=== PATIENT | female | born 1965 | race Caucasian/White ===

== ENCOUNTER 2018-08-15 14:28 | Emergency (ER) | payer OTHER ==
[~2018-08-15] VITALS: Ht 167.6 cm; Wt 118.2 kg
[2018-08-15 16:08] VITALS: BP 109/74
== END 2018-08-15 17:28 | disposition home or self-care (01) ==
LOC: EMS 14:29
DX: I87.2 Venous insufficiency (chronic) (peripheral) (principal); I87.8 Other specified disorders of veins; N39.0 Urinary tract infection, site not specified; R19.7 Diarrhea, unspecified; R45.851 Suicidal ideations; F32.9 Major depressive disorder, single episode, unspecified; Z88.0 Allergy status to penicillin; Z88.1 Allergy status to other antibiotic agents; Z88.8 Allergy status to other drugs, medicaments and biological substances; Z88.2 Allergy status to sulfonamides; Z87.891 Personal history of nicotine dependence
CPT/HCPCS: 99283

== ENCOUNTER 2019-10-04 10:47 | Inpatient (IN) | payer OTHER ==
[~2019-10-04] VITALS: Ht 172.7 cm; Wt 120.2 kg
[2019-10-04] MEDS ORDERED: HYDR-4455 PO (11:08)
[2019-10-04 12:27] LABS: BASOPHILS % (AUTO) 0.3 % (0.0-2.0); EOSINOPHILS % (AUTO) 1.3 % (1.0-6.0); HEMATOCRIT 32.8 % (36-46); HEMOGLOBIN 10.6 g/dL (12.0-16.0); LYMPHOCYTES # (AUTO) 1.2 K/uL (1.0-4.8); LYMPHOCYTES % (AUTO) 13.1 % (22.0-44.0); MEAN CORPUSCULAR HEMOGLOBIN 25.6 pg (26.0-34.0); MEAN CORPUSCULAR HGB CONC 32.3 G/dL (31.0-37.0); MEAN CORPUSCULAR VOLUME 79 fL (80-100); MONOCYTES # (AUTO) 0.8 K/uL (0.1-1.0); MONOCYTES % (AUTO) 8.3 % (2.0-9.0); NEUTROPHILS # (AUTO) 7.1 K/uL (1.8-7.7); PLATELET COUNT (AUTO) 373 K/uL (150-450); RED BLOOD CELL COUNT(AUTO) 4.14 MIL/uL (4.00-5.20); RED CELL DISTRIBUTION WIDTH 22.7 % (11.5-14.5)
[2019-10-04 12:40] LABS: ANION GAP 9 mmol/L (8-16); CALCIUM, TOTAL 9.1 mg/dL (8.8-10.5); CARBON DIOXIDE 29 mmol/L (22-29); CHLORIDE 101 mmol/L (98-107); CREATININE 0.81 mg/dL (0.60-1.30); GLOMERULAR FILTR. RATE CALC > 60 mL/min (>60); GLUCOSE,RANDOM 111 mg/dL (70-110); POTASSIUM 4.3 mmol/L (3.5-5.1); SODIUM SERUM 139 mmol/L (136-145); UREA NITROGEN, BLOOD 16 mg/dL (7-18)
[2019-10-04 12:54] LABS: TROPONIN I < 0.02 ng/mL (0.00-0.05)
[2019-10-04 13:32] LABS: AMMONIA 25 umol/L (11-32)
[2019-10-04] MEDS ORDERED: ONDANSETRON HCL 4 MG/2 ML VIAL IVP PRN ×2 (13:45→19:15)
[2019-10-04] MEDS ORDERED: ACETAMINOPHEN 325 MG TABLET PO PRN ×2 (13:45→19:15)
[2019-10-04 13:53] LABS: SALICYLATE 1.7 mg/dL (2.8-20.0)
[2019-10-04 14:26] LABS: ALANINE AMINOTRANSFERASE 102 U/L (12-78); ALBUMIN 3.1 g/dL (3.4-5.0); ALKALINE PHOSPHATASE 206 U/L (46-116); ASPARTATE AMINOTRANSFERASE 141 U/L (15-37); BILIRUBIN,TOTAL 0.4 mg/dL (0.1-1.0)
[2019-10-04 14:27] LABS: CREATINE KINASE, TOTAL ONLY 5404 U/L (26-192)
[2019-10-04 14:28] LABS: ACETAMINOPHEN < 2 mcg/mL (10-30)
[2019-10-04 14:55] LABS: AMPHET/METH SCREEN,URINE NEGATIVE (NEGATIVE); BARBITURATE SCREEN, URINE NEGATIVE (NEGATIVE); BENZODIAZEPINES SCREEN,URINE NEGATIVE (NEGATIVE); CANNABINOID SCREEN,URINE NEGATIVE (NEGATIVE); COCAINE SCREEN,URINE NEGATIVE (NEGATIVE); METHADONE SCREEN, URINE NEGATIVE (NEGATIVE); OPIATE SCREEN,URINE NEGATIVE (NEGATIVE)
[2019-10-04 14:56] LABS: APPEARANCE,URINE CLOUDY (CLEAR); BILIRUBIN,URINE NEGATIVE (NEGATIVE); GLUCOSE, URINE (UA) NEGATIVE (NEGATIVE); KETONES,URINE NEGATIVE (NEGATIVE); LEUKOCYTE ESTERASE ,URINE LARGE (NEGATIVE); NITRATE,URINE NEGATIVE (NEGATIVE); OCCULT BLOOD,URINE MODERATE (NEGATIVE); PH,URINE 5.5 (5.0-8.0); PROTEIN,URINE NEGATIVE (NEGATIVE); UROBILINOGEN,URINE 0.2 mg/dL (<=1.0)
[2019-10-04 14:57] LABS: PHENCYCLIDINE SCREEN,URINE NEGATIVE (NEGATIVE)
[2019-10-04 15:38] LABS: BACTERIA,URINE Many /HPF (None Seen); WBC,URINE >100 /HPF (0-5)
[2019-10-04 15:39] LABS: RBC,URINE 0-2 /HPF (0-2); SQUAMOUS EPITHELIAL CELL,UR Rare /LPF (None Seen)
[2019-10-04 17:55] VITALS: BP_SYST 111; BP_SYST 157; BP_DIAS 68; BP_DIAS 82
[2019-10-04] MEDS ORDERED: BISACODYL 10 MG RECTAL RECTAL SUPPOSITORY PR PRN (19:15)
[2019-10-04] MEDS ORDERED: MORPHINE SULFATE 2 MG/ML SYRINGE IVP PRN (19:15)
[2019-10-04] MEDS ORDERED: MAGNESIUM HYDROXIDE SUSPENSION 30 ML UDCUP PO PRN (19:15)
[2019-10-04 20:01] VITALS: BP 102/48
[2019-10-04] MEDS ORDERED: VANCOMYCIN HCL 1.5 GM in DEXTROSE 5%-WATER 250 ML IV ONE (21:00)
[2019-10-04] MEDS: DOCUSATE SODIUM 100 MG CAPSULE PO SCH (21:50)
[2019-10-04] MEDS ORDERED: VENL150T PO (23:20)
[2019-10-04] MEDS ORDERED: GABA-531 PO (23:20)
[2019-10-04] MEDS ORDERED: ZOLP10TA2 PO (23:20)
[2019-10-04] MEDS ORDERED: ARIP5TAB58 PO (23:20)
[2019-10-04] MEDS ORDERED: AMIT50TA3 PO (23:20)
[2019-10-04] MEDS ORDERED: POTA25TA7 PO (23:20)
[2019-10-04] MEDS ORDERED: METO5TAB87 PO (23:20)
[2019-10-04] MEDS ORDERED: MODA100T31 PO (23:20)
[2019-10-04] MEDS ORDERED: ALPR1TAB2 PO (23:20)
[2019-10-04] MEDS ORDERED: OMEP40CA12 PO (23:20)
[2019-10-04] MEDS ORDERED: BUME1TAB7 PO (23:20)
[2019-10-04] MEDS ORDERED: BACL10TA PO (23:20)
[2019-10-04] MEDS ORDERED: MIRT30 PO (23:20)
[2019-10-04] MEDS ORDERED: ATOR10TA69 PO (23:20)
[2019-10-04] MEDS ORDERED: TIZA4TAB12 PO (23:20)
[2019-10-04] MEDS ORDERED: OXYB5TAB27 PO (23:20)
[2019-10-05 00:20] VITALS: BP 100/57
[2019-10-05] MEDS: HEPARIN SODIUM,PORCINE 5,000 UNITS/ML VIAL SQ SCH ×3 (00:22→16:09)
[2019-10-05 03:54] VITALS: BP 84/35
[2019-10-05] MEDS: HYDROCODONE/ACETAMINOPHEN 5-325 MG TABLET PO PRN (06:34)
[2019-10-05 07:36] LABS: BASOPHILS % (AUTO) 0.5 % (0.0-2.0); EOSINOPHILS % (AUTO) 2.8 % (1.0-6.0); HEMATOCRIT 27.4 % (36-46); LYMPHOCYTES # (AUTO) 1.6 K/uL (1.0-4.8); MEAN CORPUSCULAR HGB CONC 32.8 G/dL (31.0-37.0); MEAN CORPUSCULAR VOLUME 79 fL (80-100); MONOCYTES # (AUTO) 0.5 K/uL (0.1-1.0); MONOCYTES % (AUTO) 7.9 % (2.0-9.0); NEUTROPHILS # (AUTO) 4.4 K/uL (1.8-7.7); NEUTROPHILS % (AUTO) 65.8 % (40.0-70.0); PLATELET COUNT (AUTO) 332 K/uL (150-450); RED BLOOD CELL COUNT(AUTO) 3.46 MIL/uL (4.00-5.20); RED CELL DISTRIBUTION WIDTH 22.4 % (11.5-14.5)
[2019-10-05 07:58] LABS: ANION GAP 6 mmol/L (8-16); CARBON DIOXIDE 30 mmol/L (22-29); CHLORIDE 105 mmol/L (98-107); CREATININE 0.86 mg/dL (0.60-1.30); GLUCOSE,RANDOM 109 mg/dL (70-110); POTASSIUM 4.5 mmol/L (3.5-5.1); SODIUM SERUM 141 mmol/L (136-145); UREA NITROGEN, BLOOD 11 mg/dL (7-18)
[2019-10-05 07:59] LABS: CALCIUM, TOTAL 8.2 mg/dL (8.8-10.5); GLOMERULAR FILTR. RATE CALC > 60 mL/min (>60)
[2019-10-05] MEDS: VANCOMYCIN HCL 1.25 GM in DEXTROSE 5%-WATER 250 ML IV SCH ×2 (08:31→16:12)
[2019-10-05] MEDS: PANTOPRAZOLE SODIUM 40 MG DR TABLET PO SCH (08:32)
[2019-10-05] MEDS: ATORVASTATIN CALCIUM 10 MG TABLET PO SCH (08:32)
[2019-10-05] MEDS: OXYBUTYNIN CHLORIDE 5 MG ER TABLET PO SCH ×3 (08:32→21:02)
[2019-10-05] MEDS: DOCUSATE SODIUM 100 MG CAPSULE PO SCH ×3 (08:44→21:02)
[2019-10-05] MEDS ORDERED: [UNRECOGNIZED DRUG - OTHER] PO SCH (09:00)
[2019-10-05 09:12] VITALS: BP 93/43
[2019-10-05] MEDS: MORPHINE SULFATE 2 MG/ML SYRINGE IVP PRN ×2 (09:51→18:25)
[2019-10-05 12:33] VITALS: BP 88/47
[2019-10-05] MEDS ORDERED: SODIUM CHLORIDE 0.9% 1,000 ML IV ONE (14:18)
[2019-10-05 15:42] VITALS: BP 84/52
[2019-10-05 20:53] VITALS: BP 96/52
[2019-10-05] MEDS: BUMETANIDE 1 MG TABLET PO SCH (21:02)
[2019-10-06] VITALS (7 sets, daily range): BP systolic 90–113; BP diastolic 43–66
[2019-10-06] MEDS: VANCOMYCIN HCL 1.25 GM in DEXTROSE 5%-WATER 250 ML IV SCH ×2 (00:16→08:22)
[2019-10-06] MEDS: ZOLPIDEM TARTRATE 5 MG TABLET PO PRN (00:16)
[2019-10-06] MEDS: HEPARIN SODIUM,PORCINE 5,000 UNITS/ML VIAL SQ SCH ×3 (00:16→17:10)
[2019-10-06] MEDS: HYDROCODONE/ACETAMINOPHEN 5-325 MG TABLET PO PRN ×2 (00:17→04:57)
[2019-10-06 07:59] LABS: BASOPHILS % (AUTO) 0.8 % (0.0-2.0); EOSINOPHILS % (AUTO) 3.7 % (1.0-6.0); HEMATOCRIT 27.6 % (36-46); HEMOGLOBIN 9.2 g/dL (12.0-16.0); LYMPHOCYTES # (AUTO) 1.9 K/uL (1.0-4.8); LYMPHOCYTES % (AUTO) 32.3 % (22.0-44.0); MEAN CORPUSCULAR HEMOGLOBIN 26.2 pg (26.0-34.0); MEAN CORPUSCULAR HGB CONC 33.3 G/dL (31.0-37.0); MEAN CORPUSCULAR VOLUME 79 fL (80-100); MONOCYTES # (AUTO) 0.5 K/uL (0.1-1.0); NEUTROPHILS # (AUTO) 3.2 K/uL (1.8-7.7); NEUTROPHILS % (AUTO) 54.2 % (40.0-70.0); PLATELET COUNT (AUTO) 376 K/uL (150-450); RED CELL DISTRIBUTION WIDTH 22.7 % (11.5-14.5)
[2019-10-06] MEDS: PANTOPRAZOLE SODIUM 40 MG DR TABLET PO SCH (08:21)
[2019-10-06] MEDS: OXYBUTYNIN CHLORIDE 5 MG ER TABLET PO SCH (08:21)
[2019-10-06] MEDS: ATORVASTATIN CALCIUM 10 MG TABLET PO SCH (08:22)
[2019-10-06] MEDS: DOCUSATE SODIUM 100 MG CAPSULE PO SCH ×2 (08:22→20:20)
[2019-10-06] MEDS: BUMETANIDE 1 MG TABLET PO SCH ×2 (08:22→20:16)
[2019-10-06 08:27] LABS: ANION GAP 7 mmol/L (8-16); CALCIUM, TOTAL 8.2 mg/dL (8.8-10.5); CARBON DIOXIDE 29 mmol/L (22-29); CHLORIDE 103 mmol/L (98-107); GLOMERULAR FILTR. RATE CALC > 60 mL/min (>60); GLUCOSE,RANDOM 102 mg/dL (70-110); POTASSIUM 3.8 mmol/L (3.5-5.1); SODIUM SERUM 139 mmol/L (136-145); VANCOMYCIN,RANDOM 27.1 mcg/mL (25.0-50.0)
[2019-10-06 08:35] LABS: UREA NITROGEN, BLOOD 11 mg/dL (7-18)
[2019-10-06] MEDS: MORPHINE SULFATE 2 MG/ML SYRINGE IVP PRN ×2 (11:33→19:38)
[2019-10-06] MEDS ORDERED: ALPRAZolam 0.5 MG TABLET PO PRN (16:00)
[2019-10-06] MEDS: GABAPENTIN 300 MG CAPSULE PO SCH ×2 (17:10→20:16)
[2019-10-06] MEDS: OXYBUTYNIN CHLORIDE 5 MG TABLET PO SCH ×2 (17:40→20:20)
[2019-10-06] MEDS ORDERED: VANCOMYCIN HCL 750 MG in DEXTROSE 5%-WATER 250 ML IV ONE (20:00)
[2019-10-06] MEDS: BACLOFEN 10 MG TABLET PO SCH (20:20)
[2019-10-06] MEDS ORDERED: SODIUM CHLORIDE 0.9% 250 ML IV ONE (21:18)
[2019-10-07] MEDS: HEPARIN SODIUM,PORCINE 5,000 UNITS/ML VIAL SQ SCH ×3 (00:18→16:12)
[2019-10-07] MEDS: ZOLPIDEM TARTRATE 5 MG TABLET PO PRN (01:17)
[2019-10-07] MEDS: MORPHINE SULFATE 2 MG/ML SYRINGE IVP PRN ×2 (02:29→13:50)
[2019-10-07 06:08] VITALS: BP 104/59
[2019-10-07 06:34] LABS: BASOPHILS % (AUTO) 0.8 % (0.0-2.0); EOSINOPHILS % (AUTO) 3.3 % (1.0-6.0); HEMATOCRIT 29.5 % (36-46); HEMOGLOBIN 9.6 g/dL (12.0-16.0); LYMPHOCYTES # (AUTO) 1.8 K/uL (1.0-4.8); LYMPHOCYTES % (AUTO) 28.2 % (22.0-44.0); MEAN CORPUSCULAR HEMOGLOBIN 25.7 pg (26.0-34.0); MEAN CORPUSCULAR HGB CONC 32.6 G/dL (31.0-37.0); MEAN CORPUSCULAR VOLUME 79 fL (80-100); MONOCYTES # (AUTO) 0.5 K/uL (0.1-1.0); MONOCYTES % (AUTO) 8.4 % (2.0-9.0); NEUTROPHILS # (AUTO) 3.7 K/uL (1.8-7.7); NEUTROPHILS % (AUTO) 59.3 % (40.0-70.0); PLATELET COUNT (AUTO) 422 K/uL (150-450); RED BLOOD CELL COUNT(AUTO) 3.74 MIL/uL (4.00-5.20); RED CELL DISTRIBUTION WIDTH 22.6 % (11.5-14.5)
[2019-10-07 06:40] LABS: ANION GAP 7 mmol/L (8-16); CALCIUM, TOTAL 8.4 mg/dL (8.8-10.5); CARBON DIOXIDE 31 mmol/L (22-29); CHLORIDE 106 mmol/L (98-107); GLOMERULAR FILTR. RATE CALC > 60 mL/min (>60); GLUCOSE,RANDOM 99 mg/dL (70-110); POTASSIUM 3.7 mmol/L (3.5-5.1); SODIUM SERUM 144 mmol/L (136-145); UREA NITROGEN, BLOOD 12 mg/dL (7-18)
[2019-10-07 07:46] VITALS: BP 107/52
[2019-10-07] MEDS ORDERED: VANCOMYCIN HCL 1.25 GM in DEXTROSE 5%-WATER 250 ML IV SCH (08:00)
[2019-10-07] MEDS: DOCUSATE SODIUM 100 MG CAPSULE PO SCH ×2 (08:59→20:26)
[2019-10-07] MEDS ORDERED: AMITRIPTYLINE HCL 50 MG TABLET PO SCH (09:00)
[2019-10-07] MEDS: OXYBUTYNIN CHLORIDE 5 MG TABLET PO SCH ×3 (09:01→19:57)
[2019-10-07] MEDS: PANTOPRAZOLE SODIUM 40 MG DR TABLET PO SCH (09:01)
[2019-10-07] MEDS: HYDROCODONE/ACETAMINOPHEN 5-325 MG TABLET PO PRN ×2 (09:01→19:57)
[2019-10-07] MEDS: ATORVASTATIN CALCIUM 10 MG TABLET PO SCH (09:01)
[2019-10-07] MEDS: BACLOFEN 10 MG TABLET PO SCH ×2 (09:02→19:57)
[2019-10-07] MEDS: BUMETANIDE 1 MG TABLET PO SCH ×2 (09:02→20:26)
[2019-10-07] MEDS: GABAPENTIN 300 MG CAPSULE PO SCH ×3 (09:02→19:57)
[2019-10-07 11:01] VITALS: BP 93/95
[2019-10-07 12:18] VITALS: BP 104/68
[2019-10-07 15:33] VITALS: BP 95/55
[2019-10-07 19:45] VITALS: BP 107/52
== END 2019-10-07 21:05 | disposition short-term general hospital (02) | DRG 557 ==
LOC: EMS 10:48 → 5S 16:27 → 6N 10-07 11:50
PROVIDERS: ADMIT Internal Medicine; ATTEND Internal Medicine
DX: M62.82 Rhabdomyolysis (principal); G92 Toxic encephalopathy; L03.115 Cellulitis of right lower limb; N39.0 Urinary tract infection, site not specified; Z68.41 Body mass index [BMI] 40.0-44.9, adult; L03.116 Cellulitis of left lower limb; G89.29 Other chronic pain; D64.9 Anemia, unspecified; E66.9 Obesity, unspecified; E78.5 Hyperlipidemia, unspecified; Z88.0 Allergy status to penicillin; Z88.1 Allergy status to other antibiotic agents; Z88.2 Allergy status to sulfonamides; Z88.8 Allergy status to other drugs, medicaments and biological substances; Z79.891 Long term (current) use of opiate analgesic; Z87.891 Personal history of nicotine dependence; Z98.84 Bariatric surgery status
CPT/HCPCS: 51702; 70450; 83605; 87040; 87081; 87086; 93005; G0480; G0481; J1644; J2270; J3370; J3411; J3475; J3490; J7030; J7050; J7060